=== PATIENT | female | born 1935 | race Asian ===

== ENCOUNTER → 2017-04-11 | Outpatient (CLI) | payer OTHER ==
[~2017-04-11] MED LIST: ALPR0.25 PO; AMLO5TAB2 PO; BENZ100C17 PO; CEFU500T PO; DOXY100T PO; HYDR-3237 PO; IBUP200C5 PO; IRON1TAB60 PO; METF500T4 PO; ROPI0.2537 PO; SIMV20TA3 PO
== END | disposition home or self-care (01) ==
LOC: CFH 09:09
PROVIDERS: ATTEND Family Medicine
DX: M25.572 Pain in left ankle and joints of left foot (principal)

== ENCOUNTER → 2017-04-14 | Outpatient (CLI) | payer OTHER | END | disposition home or self-care (01) | LOC: CFH 10:56 | PROVIDERS: ATTEND Family Medicine | DX: M17.12 Unilateral primary osteoarthritis, left knee (principal) ==

== ENCOUNTER → 2017-06-21 | Outpatient (CLI) | payer OTHER ==
[~2017-06-21] MED LIST changes: +BENZ-17 PO; -BENZ100C17 PO
== END | disposition home or self-care (01) ==
LOC: CFH 14:59
PROVIDERS: ATTEND Internal Medicine Cardiovascular Disease
DX: I08.3 Combined rheumatic disorders of mitral, aortic and tricuspid valves (principal); I77.819 Aortic ectasia, unspecified site; I10 Essential (primary) hypertension; E78.5 Hyperlipidemia, unspecified; Z95.0 Presence of cardiac pacemaker; Z87.891 Personal history of nicotine dependence
CPT/HCPCS: 93306

== ENCOUNTER 2018-02-19 16:18 | Emergency (ER) | payer OTHER ==
[~2018-02-19] VITALS: Ht 154.9 cm; Wt 48.0 kg
[~2018-02-19 16:18] MED LIST changes: +IBUP-1623 PO; -IBUP200C5 PO; -METF500T4 PO; +METF500T5 PO
[2018-02-19 16:21] VITALS: BP 154/95
== END 2018-02-19 17:31 | disposition home or self-care (01) ==
LOC: ED 17:05
DX: S50.11XA Contusion of right forearm, initial encounter (principal); X58.XXXA Exposure to other specified factors, initial encounter; Y93.89 Activity, other specified; Y92.89 Other specified places as the place of occurrence of the external cause; Y99.8 Other external cause status; I10 Essential (primary) hypertension; E11.9 Type 2 diabetes mellitus without complications; J44.9 Chronic obstructive pulmonary disease, unspecified; E78.5 Hyperlipidemia, unspecified; I48.91 Unspecified atrial fibrillation; Z87.891 Personal history of nicotine dependence; Z95.0 Presence of cardiac pacemaker
CPT/HCPCS: 99281

== ENCOUNTER 2018-06-06 10:00 | Emergency (ER) | payer OTHER ==
[~2018-06-06] VITALS: Ht 157.5 cm; Wt 52.2 kg
[~2018-06-06 10:00] MED LIST changes: -AMLO5TAB2 PO; +AMLO5TAB7 PO; +METF500T17 PO; -METF500T5 PO; -ROPI0.2537 PO; +ROPI0.254 PO
[2018-06-06 10:08] VITALS: BP 152/70
== END 2018-06-06 11:30 | disposition home or self-care (01) ==
LOC: ED 11:24
DX: S22.32XA Fracture of one rib, left side, initial encounter for closed fracture (principal); S09.93XA Unspecified injury of face, initial encounter; J44.9 Chronic obstructive pulmonary disease, unspecified; I48.91 Unspecified atrial fibrillation; E78.5 Hyperlipidemia, unspecified; I10 Essential (primary) hypertension; E11.9 Type 2 diabetes mellitus without complications; Z87.891 Personal history of nicotine dependence; Z95.0 Presence of cardiac pacemaker; W19.XXXA Unspecified fall, initial encounter; Y93.89 Activity, other specified; Y99.8 Other external cause status; Y92.410 Unspecified street and highway as the place of occurrence of the external cause
CPT/HCPCS: 99284

== ENCOUNTER 2018-09-22 16:43 | Emergency (ER) | payer MEDICARE, OTHER ==
[~2018-09-22] VITALS: Ht 157.5 cm; Wt 53.9 kg
[~2018-09-22 16:43] MED LIST changes: +AMLO-150 PO; -AMLO5TAB7 PO
[2018-09-22 17:59] LABS: BASOPHILS # (AUTO) 0.04 x10^3/uL (0-0.1); BASOPHILS % (AUTO) 1 % (0-1); EOSINOPHILS # (AUTO) 0.15 x10^3/uL (0-0.4); EOSINOPHILS % (AUTO) 2 % (1-7); LYMPHOCYTES # (AUTO) 2.14 x10^3/uL (1-3.4); LYMPHOCYTES % (AUTO) 26 % (22-44); MD NO; MEAN CORPUSCULAR HEMOGLOBIN 30.6 pg (27.0-34.8); MEAN CORPUSCULAR HGB CONC 33.8 g/dL (32.4-35.8); MEAN CORPUSCULAR VOLUME 90.4 fL (80-100); MEAN PLATELET VOLUME 7.2 fL (7.4-10.4); MONOCYTES # (AUTO) 0.65 x10^3/uL (0.2-0.8); MONOCYTES % (AUTO) 8 % (2-9); NEUTROPHILS # (AUTO) 5.17 x10^3/uL (1.8-6.8); NEUTROPHILS % (AUTO) 63 % (42-75); PLATELET COUNT 235 x10^3/uL (130-400); RED BLOOD COUNT 4.67 x10^6/uL (3.82-5.3); RED CELL DISTRIBUTION WIDTH 14.4 % (9.6-15.2)
[2018-09-22 18:07] LABS: ALBUMIN 4.2 g/dL (3.4-5.0); ANION GAP 4 mmol/L (5-15); CALCIUM 9.4 mg/dL (8.5-10.1); CHLORIDE 109 mmol/L (98-107)
[2018-09-22 18:12] LABS: CREATININE 0.79 mg/dL (0.55-1.02); TROPONIN I < 0.015 ng/mL (0.000-0.045)
--- NOTE | 2018-09-22 18:27 | NUR ---
TO ROOM 33
[2018-09-22 19:04] VITALS: BP 152/82
[2018-09-22] MEDS ORDERED: ACETAMINOPHEN 650 MG/20.3 ML UDC ONE (19:10)
== END 2018-09-22 20:26 | disposition home or self-care (01) ==
LOC: ED 20:02
DX: I10 Essential (primary) hypertension (principal); R07.9 Chest pain, unspecified; Z00.01 Encounter for general adult medical examination with abnormal findings; J44.9 Chronic obstructive pulmonary disease, unspecified; I48.91 Unspecified atrial fibrillation; E78.5 Hyperlipidemia, unspecified; E11.9 Type 2 diabetes mellitus without complications
CPT/HCPCS: 36415; 71045; 80048; 82040; 84484; 85025; 93005; 99284

== ENCOUNTER → 2018-10-05 | Outpatient (CLI) | payer MEDICARE, OTHER | END | disposition home or self-care (01) | LOC: CFH 10:08 | PROVIDERS: ATTEND Internal Medicine Cardiovascular Disease | DX: I08.2 Rheumatic disorders of both aortic and tricuspid valves (principal); Z95.0 Presence of cardiac pacemaker | CPT/HCPCS: 93306 ==

== ENCOUNTER → 2018-11-23 | Outpatient (CLI) | payer MEDICARE, MEDICAID ==
[~2018-11-23] MED LIST changes: +REGADENOSON 0.4 MG/5 ML SYRINGE ONE
== END | disposition home or self-care (01) ==
LOC: CFH 07:20
PROVIDERS: ATTEND Nurse Practitioner Family
DX: S22.080A Wedge compression fracture of T11-T12 vertebra, initial encounter for closed fracture (principal); J44.9 Chronic obstructive pulmonary disease, unspecified; Z95.0 Presence of cardiac pacemaker; X58.XXXA Exposure to other specified factors, initial encounter; Y93.89 Activity, other specified; Y92.89 Other specified places as the place of occurrence of the external cause; Y99.8 Other external cause status
CPT/HCPCS: 71046; 78452; 93017; A9502; J2785

== ENCOUNTER → 2019-06-17 | Outpatient (CLI) | payer MEDICARE, MEDICAID ==
[~2019-06-17] MED LIST changes: +METO50TA82 PO; -REGADENOSON 0.4 MG/5 ML SYRINGE ONE
== END | disposition home or self-care (01) ==
LOC: CFH 10:10
PROVIDERS: ATTEND Family Medicine
DX: S22.32XA Fracture of one rib, left side, initial encounter for closed fracture (principal); J44.9 Chronic obstructive pulmonary disease, unspecified; I50.9 Heart failure, unspecified; E11.9 Type 2 diabetes mellitus without complications; M48.54XA Collapsed vertebra, not elsewhere classified, thoracic region, initial encounter for fracture; I42.9 Cardiomyopathy, unspecified; Y99.8 Other external cause status; J98.11 Atelectasis; Z87.891 Personal history of nicotine dependence; Z88.0 Allergy status to penicillin; X58.XXXA Exposure to other specified factors, initial encounter; Y93.89 Activity, other specified; Y92.89 Other specified places as the place of occurrence of the external cause
CPT/HCPCS: 71046

== ENCOUNTER 2019-09-04 10:19 | Emergency (ER) | payer MEDICARE, MEDICAID ==
[~2019-09-04] VITALS: Ht 157.5 cm; Wt 51.2 kg
[~2019-09-04 10:19] MED LIST changes: +SIMV20TA19 PO; -SIMV20TA3 PO
[2019-09-04] MEDS ORDERED: SODIUM CHLORIDE FLUSH 10ML SYR IVF ONE (11:00)
--- NOTE | 2019-09-04 11:41 | NUR ---
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
[2019-09-04 12:00] LABS: MICROSCOPIC NOT IND
[2019-09-04 12:02] LABS: BASOPHILS # (AUTO) 0.03 x10^3/uL (0-0.1); BASOPHILS % (AUTO) 0 % (0-1); EOSINOPHILS # (AUTO) 0.14 x10^3/uL (0-0.4); EOSINOPHILS % (AUTO) 2 % (1-7); LYMPHOCYTES # (AUTO) 1.53 x10^3/uL (1-3.4); LYMPHOCYTES % (AUTO) 22 % (22-44); MD NO; MEAN CORPUSCULAR HEMOGLOBIN 30.4 pg (27.0-34.8); MEAN CORPUSCULAR HGB CONC 33.5 g/dL (32.4-35.8); MEAN CORPUSCULAR VOLUME 90.7 fL (80-100); MEAN PLATELET VOLUME 7.6 fL (7.4-10.4); MONOCYTES # (AUTO) 0.58 x10^3/uL (0.2-0.8); MONOCYTES % (AUTO) 8 % (2-9); NEUTROPHILS # (AUTO) 4.78 x10^3/uL (1.8-6.8); NEUTROPHILS % (AUTO) 68 % (42-75); PLATELET COUNT 224 x10^3/uL (130-400); RED BLOOD COUNT 4.59 x10^6/uL (3.82-5.3); RED CELL DISTRIBUTION WIDTH 14.1 % (9.6-15.2)
[2019-09-04 12:03] LABS: CULTURE INDICATED? NO
[2019-09-04 12:12] LABS: ALANINE AMINOTRANSFERASE 15 U/L (12-78); ALBUMIN 4.1 g/dL (3.4-5.0); ANION GAP 10 mmol/L (5-15); CALCIUM 9.3 mg/dL (8.5-10.1); CHLORIDE 111 mmol/L (98-107); CREATININE 0.94 mg/dL (0.55-1.02)
--- NOTE | 2019-09-04 12:13 | NUR ---
RECEIVED REPORT AND CARE FROM LISA CAMPA AT THIS TIME. 84 Y/O A&OX4 F PRESENTS STATING "MONDAY I STARTED TO HAVE PAIN IN MY LEFT GROIN AND STOMACH, IT FELT LIKE A STRIP OF PAIN ACROSS THE MIDDLE ON THE LEFT AND AROUND SIDE, LIKE BEING CUT WITH A KNIFFE, I CALLED DOCTOR AND THEY TOLD ME TO GO TO ER BUT I WAITED, THEN BY MONDAY PAIN MOVED TO UNDER LEFT BREAST, NOT MY CHEST BUT MY BREAST AND MY LEFT SHOULDER AND ARM ARE SORE. IT'S THE WHOLE LEFT SIDE OF MY BODY." NEURO AND CMS INTACT. ASSESSMENT COMPLETED. CONT PULSE OX, BP, CARDIAC MONITORS APPLIED. VSS. PACED ON MONITOR. RATES PAIN 10/10, REFUSES NEED FOR PAIN MEDICATION "I TOOK ADVIL AND IT HELPS, I DON'T WANT ANYTHING FOR PAIN I JUST WANT TO KNOW WHAT IS GOING ON." FALL PRECAUTIONS IN PLACE. CALL LIGHT IN REACH. SIDE RAILS UPX2. DENIES URGE TO URINATE, REPORTS PROVIDING UA SAMPLE WHILE IN LOBBY/TRIAGE. WARM BLANKET PROVIDED FOR COMFORT.
[2019-09-04 12:17] LABS: ALKALINE PHOSPHATASE 89 U/L (45-117); TOTAL PROTEIN 8.2 g/dL (6.4-8.2); TROPONIN I < 0.015 ng/mL (0.000-0.045)
--- NOTE | 2019-09-04 12:26 | NUR ---
PT IN CT
[2019-09-04] MEDS ORDERED: OMNIPAQUE 350 MG/ML, 100ML BOTTLE ONE (12:38)
--- NOTE | 2019-09-04 12:48 | NUR ---
PT BACK FROM CT. NAD NOTED. RESTING IN POSITION OF COMFORT. VSS. DENIES NEED TO USE RESTROOM. REPORTS PAIN 10/10 "TO WHOLE LEFT SIDE OF BODY REALLY" REFUSES NEED FOR PAIN MEDICATION. FALL PRECAUTIONS IN PLACE. CALL LIGHT IN REACH
--- NOTE | 2019-09-04 12:53 | NUR ---
PT UP FOR RECHECK
--- NOTE | 2019-09-04 13:01 | NUR ---
DR. OLIVIA AT BEDSIDE DISCUSSING POC, RASH ON LEFT BACK/SIDE, TEST RESULTS, AND PAIN WITH PT. PT AMBULATED TO RESTROOM WITH STEADY GAIT. RESTING IN POSITION OF COMFORT. VSS. CALL LIGHT IN REACH. FALL PRECAUTIONS IN PLACE.
[2019-09-04 13:23] VITALS: BP 156/91
== END 2019-09-04 13:36 | disposition home or self-care (01) ==
LOC: ED 11:49
DX: B02.9 Zoster without complications (principal); I10 Essential (primary) hypertension; E78.5 Hyperlipidemia, unspecified; J44.9 Chronic obstructive pulmonary disease, unspecified; E11.9 Type 2 diabetes mellitus without complications; I48.91 Unspecified atrial fibrillation; Z95.0 Presence of cardiac pacemaker; Z87.891 Personal history of nicotine dependence
CPT/HCPCS: 36415; 74177; 80053; 81003; 83690; 84484; 85025; 93005; 99285; Q9967

== ENCOUNTER 2019-10-03 09:02 | Emergency (ER) | payer MEDICARE, MEDICAID ==
[~2019-10-03] VITALS: Ht 154.9 cm; Wt 48.0 kg
--- NOTE | 2019-10-03 09:22 | NUR ---
patient arrives with shingles from aug 25 and recently she fell - yesterday - walking at grocery store - and injured her left wrist, her left lip, and her left knee. she has some poc wolf to trunk that are dried old. patient aox4.
[2019-10-03] MEDS ORDERED: GABA300C10 PO (09:31)
--- NOTE | 2019-10-03 09:31 | NUR ---
after reconciled meds patient then reports she has hypertention, high cholesterol
--- NOTE | 2019-10-03 10:00 | NUR ---
patient placed on isolation for shingles
--- NOTE | 2019-10-03 10:04 | NUR ---
patient awaiting xray
--- NOTE | 2019-10-03 12:15 | NUR ---
patient requested different referal as patient states she went to [place] and isn't a big fan. asked sidney and will discharge once new referal given. splinted.
[2019-10-03 12:16] VITALS: BP 155/78
== END 2019-10-03 12:34 | disposition home or self-care (01) ==
LOC: ED 10:37
DX: S62.347A Nondisplaced fracture of base of fifth metacarpal bone, left hand, initial encounter for closed fracture (principal); S63.522A Sprain of radiocarpal joint of left wrist, initial encounter; S00.83XA Contusion of other part of head, initial encounter; S70.02XA Contusion of left hip, initial encounter; R10.9 Unspecified abdominal pain; I10 Essential (primary) hypertension; W01.0XXA Fall on same level from slipping, tripping and stumbling without subsequent striking against object, initial encounter; Y93.89 Activity, other specified; Y92.410 Unspecified street and highway as the place of occurrence of the external cause; Y99.8 Other external cause status
CPT/HCPCS: 29125; 70450; 71045; 99284

== ENCOUNTER → 2020-01-22 | Outpatient (CLI) | payer MEDICARE, MEDICAID ==
[~2020-01-22] MED LIST changes: +GABA300C10 PO
== END | disposition home or self-care (01) ==
LOC: CFH 08:28
PROVIDERS: ATTEND Family Medicine
DX: N28.1 Cyst of kidney, acquired (principal)
CPT/HCPCS: 76700

== ENCOUNTER → 2020-05-27 | Outpatient (CLI) | payer MEDICARE, MEDICAID | END | disposition home or self-care (01) | LOC: CFH 12:46 | PROVIDERS: ATTEND Family Medicine | DX: K57.90 Diverticulosis of intestine, part unspecified, without perforation or abscess without bleeding (principal); N28.1 Cyst of kidney, acquired; K76.89 Other specified diseases of liver; M85.88 Other specified disorders of bone density and structure, other site | CPT/HCPCS: 74176 ==

== ENCOUNTER → 2020-08-24 | Outpatient (CLI) | payer MEDICARE, MEDICAID | END | disposition home or self-care (01) | LOC: CFH 12:10 | PROVIDERS: ATTEND Registered Nurse | DX: I08.2 Rheumatic disorders of both aortic and tricuspid valves (principal); E78.5 Hyperlipidemia, unspecified; E11.9 Type 2 diabetes mellitus without complications; I10 Essential (primary) hypertension | CPT/HCPCS: 93306 ==